=== PATIENT | male | born 1945 | race American Indian/Alaskan Native ===

== ENCOUNTER 2016-12-13 08:54 | Outpatient (CLI) | payer MEDICARE ==
[2016-12-13 09:19] LABS: Hematocrit 36.2 % (35.5-45.6); Hemoglobin 11.4 gm/dl (11.8-15.2); Mean Corpuscular HGB Conc 31 % (32-34); Mean Corpuscular Hemoglobin 26 pg (28-32); Mean Corpuscular Volume 84 fl (84-94); Platelet Count 204 K/mm3 (140-440); Red Blood Count 4.32 M/mm3 (3.65-5.03); Red Cell Distribution Width 13.9 % (13.2-15.2); White Blood Count 6.5 K/mm3 (4.5-11.0)
[2016-12-13 09:29] LABS: Albumin 4.3 g/dL (3.9-5); BUN/Creatinine Ratio 16.92; Calcium 9.3 mg/dL (8.4-10.2); Chloride 107.2 mmol/L (98-107); Phosphorous 3.1 mg/dL (2.5-4.5); Potassium 3.3 mmol/L (3.6-5.0)
== END 2016-12-13 08:55 | disposition home or self-care (01) ==
LOC: LAB 08:54
PROVIDERS: ATTEND Internal Medicine
DX: I12.9 Hypertensive chronic kidney disease with stage 1 through stage 4 chronic kidney disease, or unspecified chronic kidney disease (principal); N18.3 Chronic kidney disease, stage 3 (moderate); E08.22 Diabetes mellitus due to underlying condition with diabetic chronic kidney disease; N40.0 Benign prostatic hyperplasia without lower urinary tract symptoms; R80.0 Isolated proteinuria; E55.9 Vitamin D deficiency, unspecified; G47.37 Central sleep apnea in conditions classified elsewhere
CPT/HCPCS: 36415; 80048; 82040; 82570; 84100; 84156; 85027

== ENCOUNTER 2019-01-16 09:03 | Day surgery (SDC) | payer MEDICARE ==
[~2019-01-16 09:03] MED LIST: TETRACAINE 0.5% OD SCH
[2019-01-16] MEDS: MYDRIACYL OD SCH ×3 (09:50→10:00)
[2019-01-16] MEDS: VIGAMOX OD SCH ×3 (09:50→10:00)
[2019-01-16] MEDS: AK-Dilate OD SCH ×3 (09:50→10:00)
[2019-01-16] MEDS ORDERED: HumuLIN R IV ONE (10:04)
[2019-01-16] MEDS ORDERED: APRESOLINE IV ONE (10:05)
[2019-01-16] MEDS ORDERED: NACL 0.9% 1000 ML 1,000 ML IV SCH (10:10)
[2019-01-16] MEDS ORDERED: SUBLIMAZE ONE (10:58)
[2019-01-16] MEDS ORDERED: VERSED ONE (10:58)
--- NOTE | 2019-01-16 11:12 | Short Stay Summary ---
Short Stay Documentation Date of service: 01/16/19 - History H&P: obtained from office - Allergies and Medications Current Medications: Allergies MONAE Inhibitors Allergy (Verified 01/15/19 17:44) Unknown aspirin Allergy (Verified 01/15/19 17:44) Unknown Home Medications Medication Instructions Recorded Confirmed Last Taken Type Tamsulosin [Flomax] 1 cap PO QDAY 01/30/18 01/15/19 02/01/18 History Gabapentin [Neurontin] 300 mg PO Q8HR PRN 01/15/19 01/15/19 Unknown History Glycopyrrolate/Formoterol Fum 2 puff IH BID 01/15/19 01/15/19 Unknown History [Bevespi Aerosphere Inhaler] Insulin Aspart [NovoLOG Flexpen] 0 units SQ AC 01/15/19 01/15/19 Unknown History Insulin Detemir [Levemir VIAL] 24 unit SQ QHS 01/15/19 01/15/19 Unknown History Active Medications Sodium Chloride (Nacl 0.9% 1000 Ml) 1,000 mls @ 42 mls/hr IV DIRECT MITCHELL Moxifloxacin HCl (Vigamox) 1 drops OD Q5MIN MIT[facility]LL Stop: 01/16/19 23:59 Phenylephrine HCl (Ak-Dilate) 1 drops OD Q5MIN [facility]LL Stop: 01/16/19 23:59 Tetracaine HCl (Tetracaine 0.5%) 1 drops OD Q5M MIT[facility]LL Stop: 01/16/19 23:59 Tropicamide (Mydriacyl) 1 drops OD Q5MIN MIT[facility]LL Stop: 01/16/19 23:59 - Brief post op/procedure progress note Date of procedure: 01/16/19 Pre-op diagnosis: right cataract Post-op diagnosis: same Procedure: Phacoemulsification with intraocular lens insertion right eye Anesthesia: MAC, local Surgeon: DAVIDE ALLISON Estimated blood loss: none Pathology: none Condition: stable - Disposition Condition at discharge: Good Disposition: DC-01 TO HOME OR SELFCARE - Discharge Diagnoses (1) Cortical age-related cataract of right eye Status: Resolved Short Stay Discharge Plan Follow up with: JOSIANE BATRES MD [Primary Care Provider] - 7 Days
[2019-01-16] MEDS ORDERED: PRED FORTE 1% OD ONE (11:30)
--- NOTE | 2019-01-16 11:32 | Operative Report ---
Operative Report Operative Report: PATIENT'S NAME: DATE OF : DATE OF SURGERY: 01/16/2019 PREOPERATIVE DIAGNOSIS: Cataract right eye POSTOPERATIVE DIAGNOSIS: Same OPERATIVE PROCEDURE: Phacoemulsification with intraocular lens implantation, right eye SURGEON: Adela Cordoba M.D. PAPER REWINDER OPERATOR SURGEON: Nenita Lens: [id number] 20.0 D ANESTHESIA: Monitored anesthesia care in combination with topical and intracameral anesthesia because of the established specific risk of reflux, arrhythmias, or anxiety attacks associated with ocular manipulation, as well as the difficulty of the assistant attorney general to manage such potentially catastrophic events while simultaneously attempting to complete the surgical procedure and was deemed necessary for the patient's safety to have an Draw String Knotter present during the procedure whenever possible. An Draw String Knotter was utilized to regulate the intravenous sedation of the patient so the patient was cooperative yet not asleep in order for the patient to successfully maintain fixation of the eye on the operating light of the microscope. COMPLICATIONS: No surgical complications No blood loss. ALLERGIES: Som inhibitors, aspirin PROGNOSIS: Excellent INDICATIONS FOR SURGERY: The patient is undergoing surgery in the hopes of eliminating or improving these visual difficulties. PROCEDURE: After arriving at the surgery center, the patient was given topical anesthetic and dilating drops, as noted in the record. The patient was then taken into the operating room and given more anesthetic drops. The eyelids, lashes, and lid margins were scrubbed with Betadine solution, and the patient was draped. The Nurse Draw String Knotter administered IV sedation and monitored the patient during the procedure. The eye was then fixated with a 0.12, and a stab incision was made in the peripheral clear cornea into the anterior chamber. This was made on my left side. Viscoelastic was next used to fill the anterior chamber. The eye was once again fixated with the 0.12 forceps and a keratome was used make an incision in clear cornea peripherally on my right hand side temporally. The capsule forceps were used to open the central anterior capsule and then make a continuous round capsulotomy. Hydrodissection was carried out utilizing a cannula and balanced salt solution to delineate the cortical material from the capsule and the nucleus from the cortical material. The phaco tip was introduced into the eye and used to remove the anterior cortical material in the area of the capsulotomy. Then the phaco tip was buried into the nucleus, and a chopping instrument was introduced into the eye and used to provide countertraction in the nucleus between this instrument and the phaco tip fracturing the nucleus. This procedure was repeated multiple times, providing multiple small segments of the lens, and then the phaco tip was used to remove each of these segments. An I/A tip was then used to remove the remaining cortex. The anterior chamber was refilled with viscoelastic. An one-piece, acrylic intraocular lens was then placed into an inserting cartridge. The tip of the inserting cartridge was introduced into the keratome incision and into the anterior chamber. The implant was gently advanced through the cartridge and into the eye, where it unfolded, and both haptics were placed in the capsular bag, where it centered nicely and appeared to be well fixated. After placement of the intraocular lens, the I~and~A handpiece was placed back into the eye and used to remove the viscoelastic, including viscoelastic that was behind the optic of the intraocular lens. The anterior chamber was then filled with balanced salt solution, and hydration of the wound was used to cause swelling of the wound and more appropriate watertight closure. When the wound was found to be firm, the patient was asked to comment on how bright the light was. If there was no light perception at all or if the light was substantially dimmer than during the rest of the surgery, the amount of fluid in the eye was decompressed to lower the intraocular pressure until the patient could see the b right light again. This was done to avoid any damage or decreased blood flow to the optic nerve. MEDICATIONS APPLIED AT END OF SURGERY: One drop of Pred Forte and Vigamox The patient was given a shield to wear at night and was instructed not to rub or push on the eye. DISCHARGE SUMMARY: The patient was released in stable condition. The patient and those with the patient were given a written sheet of postoperative instructions and counseling on any abnormal laboratory studies. The patient is to see us tomorrow for follow-up in the office and is to call immediately for any difficulties. Adela Cordoba M.D. Date
[2019-01-16] MEDS ORDERED: DIAMOX ONE (11:53)
[2019-01-16 13:17] VITALS: BP 145/80
[2019-01-16] MEDS ORDERED: DIAMOX PO NR (13:22)
--- NOTE | 2019-01-16 13:41 | Post Anesthesia Evaluation ---
- Post Anesthesia Evaluation Patient Participated: Yes Airway Patent: Yes Stable Respiratory Function: Yes Nausea/Vomiting: No Temp > 96.8F: Yes Pain Manageable: Yes Adequeate Hydration: Yes Anesthesia Complications: No
--- NOTE | 2019-01-16 13:41 | Anesthesia Consultation ---
Anesthesia Consult and Med Hx Date of service: 01/16/19 - Airway ROM Head & Neck: Adequate Mental/Hyoid Distance: Adequate Mallampati Class: Class III Intubation Access Assessment: Possibly Difficult - Pulmonary Exam CTA: Yes - Cardiac Exam Cardiac Exam: RRR - Pre-Operative Health Status ASA Pre-Surgery Classification: ASA3 Proposed Anesthetic Plan: MAC - Pulmonary Hx Smoking: Yes (former smoker 40 pack/years, quit 20 years ago) Hx Respiratory Symptoms: Yes (right lung mass) SOB: Yes - Cardiovascular System Hx Hypertension: Yes (RESOLVED) Hx Heart Attack/AMI: No Hx Pacemaker: No Hx Internal Defibrillator: No - Central Nervous System Hx Psychiatric Problems: No - Endocrine Hx Renal Disease: Yes (CKD 3 stage) Hx End Stage Renal Disease: No Hx Insulin Dependent Diabetes: Yes - Other Systems Hx Alcohol Use: No Hx Cancer: Yes
--- NOTE | 2019-01-16 13:41 | Anesthesia Day of Surgery ---
Anesthesia Day of Surgery - Day of Surgery Patient Examined: Yes Patient H&P Reviewed: Yes Patient is NPO: Yes
== END 2019-01-16 12:48 | disposition home or self-care (01) ==
LOC: OR 09:03
DX: E11.36 Type 2 diabetes mellitus with diabetic cataract (principal); H25.011 Cortical age-related cataract, right eye; J44.9 Chronic obstructive pulmonary disease, unspecified; D64.9 Anemia, unspecified; I10 Essential (primary) hypertension; I12.9 Hypertensive chronic kidney disease with stage 1 through stage 4 chronic kidney disease, or unspecified chronic kidney disease; E11.22 Type 2 diabetes mellitus with diabetic chronic kidney disease; N18.3 Chronic kidney disease, stage 3 (moderate); M19.90 Unspecified osteoarthritis, unspecified site; Z83.3 Family history of diabetes mellitus; Z82.61 Family history of arthritis; Z88.6 Allergy status to analgesic agent; Z79.899 Other long term (current) drug therapy; Z87.891 Personal history of nicotine dependence; Z79.4 Long term (current) use of insulin; Z85.118 Personal history of other malignant neoplasm of bronchus and lung; Z85.89 Personal history of malignant neoplasm of other organs and systems; Z98.890 Other specified postprocedural states; Z84.1 Family history of disorders of kidney and ureter; Z80.8 Family history of malignant neoplasm of other organs or systems; Z82.49 Family history of ischemic heart disease and other diseases of the circulatory system
CPT/HCPCS: 66984; 82962; J0360; J2250; J3010; J7030; J1815; V2632

== ENCOUNTER 2019-02-20 09:42 | Day surgery (SDC) | payer MEDICARE ==
[~2019-02-20 09:42] MED LIST changes: -TETRACAINE 0.5% OD SCH; +TETRACAINE 0.5% OS PRN
[2019-02-20] MEDS: VIGAMOX OS SCH ×3 (10:04→10:15)
[2019-02-20] MEDS: MYDRIACYL OS SCH ×3 (10:04→10:15)
[2019-02-20] MEDS: AK-Dilate OS SCH ×3 (10:05→10:15)
--- NOTE | 2019-02-20 10:09 | Anesthesia Day of Surgery ---
Anesthesia Day of Surgery - Day of Surgery Patient Examined: Yes Patient H&P Reviewed: Yes Patient is NPO: Yes
--- NOTE | 2019-02-20 10:13 | Anesthesia Consultation ---
Anesthesia Consult and Med Hx Date of service: 02/20/19 - Airway Anesthetic Teeth Evaluation: Dentures, Edentulous ROM Head & Neck: Adequate Mental/Hyoid Distance: Adequate Mallampati Class: Class II Intubation Access Assessment: Good - Pre-Operative Health Status ASA Pre-Surgery Classification: ASA3 Proposed Anesthetic Plan: MAC - Pulmonary Hx Smoking: Yes (former smoker 40 pack/years, quit 20 years ago) Hx Respiratory Symptoms: Yes (right lung mass) SOB: Yes - Cardiovascular System Hx Hypertension: Yes - Central Nervous System Hx Psychiatric Problems: No - Endocrine Hx Renal Disease: Yes (CKD 3 stage) Hx Insulin Dependent Diabetes: Yes Hx Non-Insulin Dependent Diabetes: Yes - Other Systems Hx Cancer: Yes (right lung mass)
[2019-02-20] MEDS ORDERED: SUBLIMAZE ONE ×2 (10:14→11:09)
[2019-02-20] MEDS ORDERED: VERSED ONE (10:14)
[2019-02-20] MEDS ORDERED: HumuLIN R IV SCH (10:44)
[2019-02-20] MEDS ORDERED: APRESOLINE ONE (11:08)
[2019-02-20] MEDS ORDERED: DIAMOX PO ONE (11:14)
[2019-02-20] MEDS ORDERED: BREVIBLOC IV ONE (11:15)
--- NOTE | 2019-02-20 11:15 | Operative Report ---
Operative Report Operative Report: PATIENT'S NAME: DATE OF : DATE OF SURGERY: 02/20/2019 PREOPERATIVE DIAGNOSIS: Cataract left eye POSTOPERATIVE DIAGNOSIS: Same OPERATIVE PROCEDURE: Phacoemulsification with intraocular lens implantation, left eye SURGEON: Adela Cordoba M.D. AP PROCESSOR SURGEON: Nenita Lens: [id number] 21.0 D ANESTHESIA: Monitored anesthesia care in combination with topical and intracameral anesthesia because of the established specific risk of reflux, arrhythmias, or anxiety attacks associated with ocular manipulation, as well as the difficulty of the issuer to manage such potentially catastrophic events while simultaneously attempting to complete the surgical procedure and was deemed necessary for the patient's safety to have an Straw Hat Brim Raiser Operator present during the procedure whenever possible. An Straw Hat Brim Raiser Operator was utilized to regulate the intravenous sedation of the patient so the patient was cooperative yet not asleep in order for the patient to successfully maintain fixation of the eye on the operating light of the microscope. COMPLICATIONS: No surgical complications No blood loss. ALLERGIES: Aspirin MONAE inhibitor's PROGNOSIS: Excellent INDICATIONS FOR SURGERY: The patient is undergoing surgery in the hopes of eliminating or improving these visual difficulties. PROCEDURE: After arriving at the surgery center, the patient was given topical anesthetic and dilating drops, as noted in the record. The patient was then taken into the operating room and given more anesthetic drops. The eyelids, lashes, and lid margins were scrubbed with Betadine solution, and the patient was draped. The Nurse Straw Hat Brim Raiser Operator administered IV sedation and monitored the patient during the procedure. The eye was then fixated with a 0.12, and a stab incision was made in the peripheral clear cornea into the anterior chamber. This was made on my left side. Viscoelastic was next used to fill the anterior chamber. The eye was once again fixated with the 0.12 forceps and a keratome was used make an incision in clear cornea peripherally on my right hand side temporally. The capsule forceps were used to open the central anterior capsule and then make a continuous round capsulotomy. Hydrodissection was carried out utilizing a cannula and balanced salt solution to delineate the cortical material from the capsule and the nucleus from the cortical material. The phaco tip was introduced into the eye and used to remove the anterior cortical material in the area of the capsulotomy. Then the phaco tip was buried into the nucleus, and a chopping instrument was introduced into the eye and used to provide countertraction in the nucleus between this instrument and the phaco tip fracturing the nucleus. This procedure was repeated multiple times, providing multiple small segments of the lens, and then the phaco tip was used to remove each of these segments. An I/A tip was then used to remove the remaining cortex. The anterior chamber was refilled with viscoelastic. An one-piece, acrylic intraocular lens was then placed into an inserting cartridge. The tip of the inserting cartridge was introduced into the keratome incision and into the anterior chamber. The implant was gently advanced through the cartridge and into the eye, where it unfolded, and both haptics were placed in the capsular bag, where it centered nicely and appeared to be well fixated. After placement of the intraocular lens, the I~and~A handpiece was placed back into the eye and used to remove the viscoelastic, including viscoelastic that was behind the optic of the intraocular lens. The anterior chamber was then filled with balanced salt solution, and hydration of the wound was used to cause swelling of the wound and more appropriate watertight closure. When the wound was found to be firm, the patient was asked to comment on how bright the light was. If there was no light perception at all or if the light was substantially dimmer than during the rest of the surgery, the amount of fluid in the eye was decompressed to lower the intraocular pressure until the patient could see the bright light again. This was done to avoid any damage or decreased blood flow to the optic nerve. MEDICATIONS APPLIED AT END OF SURGERY: One drop of Pred Forte and Vigamox The patient was given a shield to wear at night and was instructed not to rub or push on the eye. DISCHARGE SUMMARY: The patient was released in stable condition. The patient and those with the patient were given a written sheet of postoperative instructions and counseling on any abnormal laboratory studies. The patient is to see us tomorrow for follow-up in the office and is to call immediately for any difficulties. Adela Cordoba M.D. Date
--- NOTE | 2019-02-20 11:16 | Short Stay Summary ---
Short Stay Documentation Date of service: 02/20/19 - History H&P: obtained from office - Allergies and Medications Current Medications: Allergies MONAE Inhibitors Allergy (Verified 02/19/19 13:57) Unknown aspirin Allergy (Verified 02/19/19 13:57) Unknown Home Medications Medication Instructions Recorded Confirmed Last Taken Type Tamsulosin [Flomax] 1 cap PO QDAY 01/30/18 02/19/19 01/15/19 18:00 History Gabapentin [Neurontin] 300 mg PO Q8HR PRN 01/15/19 02/19/19 Unknown History Glycopyrrolate/Formoterol Fum 2 puff IH BID 01/15/19 02/19/19 Unknown History [Bevespi Aerosphere Inhaler] Insulin Aspart [NovoLOG Flexpen] 0 units SQ AC 01/15/19 02/19/19 Unknown History Insulin Detemir [Levemir VIAL] 24 unit SQ QHS 01/15/19 02/19/19 01/15/19 18:00 History Linagliptin [Tradjenta] 5 mg PO QDAY 02/03/19 02/19/19 Unknown History Active Medications Insulin Human Regular (Humulin R) 4 units IV ONCE [facility]LL Stop: 02/20/19 15:00 Last Admin: 02/20/19 10:47 Dose: 4 units Documented by: Moxifloxacin HCl (Vigamox) 1 drops OS Q5MIN MIT[facility]LL Last Admin: 02/20/19 10:04 Dose: 1 drops Documented by: Phenylephrine HCl (Ak-Dilate) 1 drops OS Q5M MITCHELL Last Admin: 02/20/19 10:05 Dose: 1 drops Documented by: Prednisolone Acetate (Pred Forte 1%) 1 drops OS ONCE NR Stop: 02/20/19 23:59 Tetracaine HCl (Tetracaine 0.5%) 1 drops OS Q5M PRN PRN Reason: analgesia Last Admin: 02/20/19 10:04 Dose: 1 drops Documented by: Tropicamide (Mydriacyl) 1 drops OS Q5M MIT[facility]LL Last Admin: 02/20/19 10:04 Dose: 1 drops Documented by: - Brief post op/procedure progress note Date of procedure: 02/20/19 Pre-op diagnosis: left cataract Post-op diagnosis: same Procedure: Phacoemulsification with intraocular lens insertion left eye Anesthesia: MAC, local Surgeon: DAVIDE ALLISON Estimated blood loss: none Pathology: none Condition: stable - Disposition Condition at discharge: Good Disposition: DC-01 TO HOME OR SELFCARE - Discharge Diagnoses (1) Cortical age-related cataract of left eye Status: Resolved Short Stay Discharge Plan Follow up with: JOSIANE BATRES MD [Primary Care Provider] - 7 Days
[2019-02-20] MEDS ORDERED: HumuLIN R IV ONE (12:00)
[2019-02-20] MEDS ORDERED: PRED FORTE 1% OS NR (12:00)
[2019-02-20 12:21] VITALS: BP 116/67
== END 2019-02-20 13:00 | disposition home or self-care (01) ==
LOC: OR 09:42
DX: E11.36 Type 2 diabetes mellitus with diabetic cataract (principal); H25.012 Cortical age-related cataract, left eye; I12.9 Hypertensive chronic kidney disease with stage 1 through stage 4 chronic kidney disease, or unspecified chronic kidney disease; E11.22 Type 2 diabetes mellitus with diabetic chronic kidney disease; N18.3 Chronic kidney disease, stage 3 (moderate); J44.9 Chronic obstructive pulmonary disease, unspecified; D64.9 Anemia, unspecified; I10 Essential (primary) hypertension; M19.90 Unspecified osteoarthritis, unspecified site; Z85.118 Personal history of other malignant neoplasm of bronchus and lung; Z98.890 Other specified postprocedural states; Z80.8 Family history of malignant neoplasm of other organs or systems; Z83.3 Family history of diabetes mellitus; Z82.61 Family history of arthritis; Z84.1 Family history of disorders of kidney and ureter; Z79.899 Other long term (current) drug therapy; Z87.891 Personal history of nicotine dependence; Z88.6 Allergy status to analgesic agent; Z79.4 Long term (current) use of insulin; Z88.8 Allergy status to other drugs, medicaments and biological substances
CPT/HCPCS: 66984; 82962; J0360; J3010; J1815; J2250; V2632